=== PATIENT | male | born 1985 | race Caucasian/White ===

== ENCOUNTER 2017-03-11 20:20 | Observation (INO) | payer MEDICAID ==
[~2017-03-11] VITALS: Ht 170.2 cm; Wt 86.2 kg
[2017-03-11 21:21] LABS: BASOPHILS 0.3 % (0-2); EOSINOPHILS 0.9 % (0-7); HEMATOCRIT 34.8 % (42.0-54.0); HEMOGLOBIN 11.4 g/dL (13.5-17.5); IMMATURE GRANULOCYTES 0.2 % (0-5); LYMPHOCYTES 29.9 % (15-50); MCH 29.2 pg (26.0-34.0); MCHC 32.8 g/dL (31.0-37.0); MEAN PLATELET VOLUME 9.7 fL (7.4-10.4); MONOCYTES 7.6 % (2-11); NEUTROPHILS 61.1 % (40-80); PLATELET COUNT 331 10x3/uL (130-400); RBC 3.91 10x6/uL (4.20-6.10); RDW 15.2 % (11.5-14.5); WBC 10.5 10x3/uL (4.8-10.8)
[2017-03-11 21:38] LABS: ALBUMIN 3.7 g/dL (3.4-5.0); ALKALINE PHOSPHATASE 111 U/L (46-116); ALT (SGPT) 111 U/L (10-68); BILIRUBIN - TOTAL 0.13 mg/dL (0.2-1.3); CALC OSMOLALITY 278 mosm/kg (275-300); CHLORIDE - SERUM 104 mmol/L (98-107); CREATININE - SERUM 1.2 mg/dL (0.6-1.3); GLUCOSE 100 mg/dL (74-106); POTASSIUM - SERUM 3.8 mmol/L (3.5-5.1); PROTEIN - SERUM 6.9 g/dL (6.4-8.2); SODIUM 139 mmol/L (136-145); UREA NITROGEN 14 mg/dL (7-18); eGFR NON AFRICAN AMERICAN 76 mL/min (90-120)
[2017-03-11 21:57] LABS: APPEARANCE CLEAR (CLEAR); BILIRUBIN NEGATIVE (NEGATIVE); COLOR YELLOW (YELLOW); GLUCOSE NEGATIVE (NEGATIVE); KETONE NEGATIVE (NEGATIVE); LEUKOCYTE ESTERASE NEGATIVE (NEGATIVE); NITRITE NEGATIVE (NEGATIVE); PROTEIN NEGATIVE (NEGATIVE); SPECIFIC GRAVITY 1.015 (1.005-1.020); UROBILINOGEN NORMAL (NORMAL)
[2017-03-12 01:30] VITALS: BP 112/63; BMI 29.8
[2017-03-12 04:00] VITALS: BP 105/62
[2017-03-12 05:49] LABS: BASOPHILS 0.3 % (0-2); EOSINOPHILS 2.1 % (0-7); HEMATOCRIT 32.1 % (42.0-54.0); HEMOGLOBIN 10.5 g/dL (13.5-17.5); IMMATURE GRANULOCYTES 0.2 % (0-5); LYMPHOCYTES 38.8 % (15-50); MCH 29.4 pg (26.0-34.0); MCHC 32.7 g/dL (31.0-37.0); MCV 89.9 fL (80.0-100.0); MEAN PLATELET VOLUME 9.6 fL (7.4-10.4); MONOCYTES 6.8 % (2-11); NEUTROPHILS 51.8 % (40-80); PLATELET COUNT 305 10x3/uL (130-400); RBC 3.57 10x6/uL (4.20-6.10); RDW 15.4 % (11.5-14.5); WBC 8.8 10x3/uL (4.8-10.8)
--- NOTE | 2017-03-12 07:54 | NUR ---
SCHEDULED IV FLUIDS HUNG AT THIS TIME. IV TO RIGHT AC PATENT. PT USING HAND PRESSER FOR PAIN. DRESSING TO LEFT ARM C/D/I WITH SPLINT AND LEIF IN USE. PT IS SELF AMBULATORY. PAIN 9/10 ABDOMINALLY AND TO LEFT ARM. ASSESSMENT PERFORMED PER FLOWSHEET. PT HAD SCANT AMOUNT OF BRIGHT RED BLOOD IN COMMODE THAT HE REPORTED WAS FROM VOMITING. REMAINS NPO. DENIES FURTHER NEEDS AT THIS TIME. CALL LIGHT IN REACH, WILL CONTINUE WITH PLAN OF CARE.
[2017-03-12 08:30] VITALS: BP 121/68
--- NOTE | 2017-03-12 09:30 | NUR ---
SCHEDULED MEDICATIONS ADMINISTERED AT THIS TIME. PROVIDED PT WITH SCRUB TOP AND BOTTOMS, APPLIED SCD'S TO BILATERAL LOWER EXTREMETIES AND EXPLAINED IMPORTANCE. BOUNTY TRAPPER IN USE FOR PAIN CONTROL. RUDY DIRECTOR ONLINE MARKETING AT BEDSIDE ASSESSING PATIENT. DENIES FURTHER NEEDS. CALL LIGHT IN REACH, WILL CONTINUE WITH PLAN OF CARE.
[2017-03-12 09:33] LABS: ALBUMIN 3.2 g/dL (3.4-5.0); BILIRUBIN - TOTAL 0.2 mg/dL (0.2-1.3); CALCIUM 8.5 mg/dL (8.5-10.1); CARBON DIOXIDE 31.3 mmol/L (21.0-32.0); CREATININE - SERUM 1.3 mg/dL (0.6-1.3); POTASSIUM - SERUM 4.3 mmol/L (3.5-5.1); PROTEIN - SERUM 6.2 g/dL (6.4-8.2)
[2017-03-12 09:58] LABS: AMYLASE - SERUM 44 U/L (25-115); LIPASE 98 U/L (73-393)
--- NOTE | 2017-03-12 11:14 | NUR ---
PT TAKEN TO CT SCAN AT THIS TIME. WILL MONITOR PT WHEN HE RETURNS TO ROOM 2233.
--- NOTE | 2017-03-12 11:20 | NUR ---
URINE SAMPLE SENT TO LAB PER ORDER FOR URINE DRUG SCREEN. NAIL KEGGER IN USE. DENIES NEEDS AT THIS TIME. WILL CONTINUE WITH PLAN OF CARE.
--- NOTE | 2017-03-12 12:30 | NUR ---
PRN BOLUS DOSE ADMINISTERED THROUGH INSEMINATOR PER ORDER. RECORDED IN INSEMINATOR FLOWSHEET AND WITNESSED BY RICHAR PUENTE. PT REMAINS NPO. CALL LIGHT IN REACH, WILL CONTINUE WITH PLAN OF CARE.
[2017-03-12 12:54] LABS: UDS - AMPHET NEGATIVE QUAL (NEGATIVE); UDS - BARB NEGATIVE QUAL (NEGATIVE); UDS - BENZO POSITIVE QUAL (NEGATIVE); UDS - COCAINE NEGATIVE QUAL (NEGATIVE); UDS - METH NEGATIVE QUAL (NEGATIVE); UDS - OPIATE POSITIVE QUAL (NEGATIVE); UDS - PCP NEGATIVE QUAL (NEGATIVE); UDS - THC NEGATIVE QUAL (NEGATIVE)
[2017-03-12 13:37] VITALS: Ht 170.2 cm; Wt 86.2 kg
[2017-03-12 15:58] VITALS: BP 98/53
--- NOTE | 2017-03-12 16:30 | NUR ---
BOLUS DOSE OF DILAUDID ADMINISTERED THROUGH MEDICAL ILLUSTRATOR PER ORDER. IV TO RIGHT AC REMAINS PATENT AND PATIENT REMAINS NPO.
--- NOTE | 2017-03-12 19:21 | NUR ---
PROTINIX GIVEN PER MAR, RAFAEL WELL, ASSESSMENT COMPLETED, NO ACUTE DISTRESS NOTED AT THIS TIME, SR'S UP, CL IN REACH, WILL MONITOR
--- NOTE | 2017-03-15 12:22 | CN ---
PATIENT NAME:FIDEL OTTO MEDICAL RECORD: [id number] : 89 LOCATION:[id number] ADMIT DATE: 03/11/17 ACCOUNT: [id number] CONSULTING PHYSICIAN: KRISTYN JONES MD REFERRING PHYSICIAN: KYAW KHOURY MD DATE OF CONSULTATION: 03/12/2017 Gastroenterology Consultation REFERRING PHYSICIAN: Kyaw Khoury MD. HISTORY OF PRESENT ILLNESS: The patient is a 31-year-old white male with history of bipolar disorder/depression, on lithium and Thorazine, who basically was admitted with a relatively acute onset of epigastric/right upper quadrant pain as well as an episode of reported hematemesis. He has no past history of such bleeding and denies any NSAID use. He had a recent hand accident and has a splint on his left hand. He continues to complain of some epigastric pain. PAST MEDICAL HISTORY: As above. ALLERGIES: TORADOL AND MORPHINE. FAMILY HISTORY: Negative for GI disease. SOCIAL HISTORY: The patient is a longtime smoker. He denies alcohol use. REVIEW OF SYSTEMS: Noncontributory other than in the HPI. PHYSICAL EXAMINATION: GENERAL: Reveals a young white male in mild distress. VITAL SIGNS: Stable. He is afebrile. CHEST: Clear. HEART: Regular rate and rhythm. ABDOMEN: Soft, mild tenderness in the right upper quadrant. EXTREMITIES: No edema. LABORATORY DATA: Reveals a white count of 8000, hematocrit 32, MCV of 89 and platelet count 300,000 with a normal differential. Electrolytes are normal. BUN 13 and creatinine 1.3. Liver enzymes revealed total bilirubin of 0.2, AST 39, ALT 94, alkaline phosphatase 88 and albumin 3.2. Amylase and lipase are normal. UA is negative. Urine drug screen is positive for benzodiazepines and opiates. CT of the abdomen and pelvis is ordered. IMPRESSION: 1. Acute right upper quadrant/epigastric pain with reported hematemesis of unclear etiology, rule out peptic ulcer disease, Irene-Neil tear, reflux esophagitis, etc. 2. History of bipolar disorder. 3. Currently on Dilaudid and asking for more pain meds. 4. Minimally elevated transaminases, rule out viral hepatitis. RECOMMENDATION: 1. Followup CT of the abdomen. 2. Check an ultrasound of the gallbladder and a KUB. 3. Check a hepatitis screen. CONSULT REPORT [id number] FIDEL OTTO 4. High dose Protonix for now. 5. Depending on above, consider EGD. TRANSINT:[id number] Voice Confirmation ID: [id number] DOCUMENT ID: [id number] KRISTYN JONES MD at 1222 CC: KYAW KHOURY MD [id number] DICTATION DATE: 03/12/17 190 [employer] WELL: 03/13/17 0029 DIS IN 03/12/17 [facility] [address] [id number]
== END 2017-03-12 22:51 | disposition left against medical advice (07) ==
LOC: D.ER 20:20 → D.MS 23:32 → OBSVTIME 23:32 → D.MS 03-12 22:51
PROVIDERS: Emergency Medicine; Family Medicine; ADMIT Emergency Medicine
DX: K92.0 Hematemesis (principal); F31.9 Bipolar disorder, unspecified; F17.203 Nicotine dependence unspecified, with withdrawal; R10.9 Unspecified abdominal pain